=== PATIENT | male | born 1965 | race African-American/Black ===

== ENCOUNTER 2016-11-04 10:45 | Emergency (ER) | payer OTHER ==
[~2016-11-04] VITALS: Ht 185.4 cm; Wt 116.1 kg
[~2016-11-04 10:45] MED LIST: FLEXERIL10 MG PO; MOTRIN800 MG PO
--- NOTE | 2016-11-04 12:00 | ED CARDIAC/CP/PALPITATIONS ---
History of Present Illness General Chief Complaint: General Adult Stated Complaint: LOW BACK PAIN, CP Source: patient, old records Exam Limitations: no limitations Vital Signs & Intake/Output Vital Signs & Intake/Output Vital Signs Date Time Temp Pulse Resp B/P Pulse O2 O2 Flow FiO2 Ox Delivery Rate 11/04 1343 96.8 72 18 159/97 96 Room Air 11/04 1213 97 Room Air 11/04 1152 98.0 72 18 159/97 96 11/04 1103 97.2 76 20 148/87 97 Room Air Allergies Coded Allergies: NO KNOWN ALLERGIES (08/18/14) Reconcile Medications CYCLOBENZAPRINE HCL (Flexeril) 10 MG TAB 1 TAB PO TID PRN SPASM Avoid operating motor vehicle or heavy machinery Ibuprofen (Motrin) 800 MG TAB 1 TAB PO TID PRN PAIN Pantoprazole Sodium (Protonix) 40 MG TABLET.DR 1 TAB PO DAILY GERD Triage Note: PT C/O BURNING SENSATION IN CHEST SINCE THURSDAY. TOOK OTC MEDS FOR HEARTBURN WITH NO RELIEF. PT DENIES SOB. PT ALSO STATES LOW BACK PAIN Triage Nurses Notes Reviewed? yes Onset: Gradual Duration: day(s): (3), constant Timing: recent history Quality/Severity: moderate, burning Location: central Radiation: no radiation Activities at Onset: none Nitro Today/Relief: no nitro taken today Associated Symptoms: r lower back pain HPI: 50-year-old male with history of hypertension presents complaining of burning sensation to his chest that he's had intermittently however becoming more constant for the past 4 days. Patient was using [id number] Tums without improvement. He denies any radiation of pain into his abdomen or back, he is also however complaining of right lower back pain that came on after the symptoms began. He denies any abdominal pain nausea vomiting diarrhea no palpitations dizziness lightheadedness. Pain is not worse with inspiration no shortness of breath no fever no chills. He states the symptoms got worse after having a beer. There's been no recent trauma or injury no urinary bowel incontinence (TORI CHOWDHURY) Past History Travel History Traveled to [place] past 21 day No Medical History Any Pertinent Medical History? see below for history Cardiovascular: hypertension Surgical History Surgical History: none Psychosocial History What is your primary language Japanese Tobacco Use: Never used ETOH Use: occasional use Illicit Drug Use: denies illicit drug use Family History Hx Contributory? No (TORI CHOWDHURY) Review of Systems Review of Systems Constitutional: Reports: see HPI. All Other Systems: Reviewed and Negative Comments Review of systems: See HPI, All other systems negative. Constitutional, no chills no fever, no malaise HEENT: No visual changes no sore throat no congestion Cardiovascular: chest pain , no palpitation , no orthopnea no ankle swelling Skin, no jaundice no rashes, no change in skin Respiratory: No dyspnea no cough no sputum no hemoptysis GI: No nausea no vomiting, no diarrhea, no bloating/constipation : No dysuria No hematuria, no frequency, no discharge Muscle skeletal: No joint pain, no joint swelling, back pain, no neck pain, Neurologic: No numbness no confusion, no headache Psych: No stress Heme/endocrine: No bruising no bleeding Immunology: No lymphadenopathy (TORI CHOWDHURY) Physical Exam Physical Exam General Appearance: well developed/nourished, no apparent distress, alert Cardiovascular: regular rate/rhythm Comments: Well-developed well-nourished person in no acute distress HEENT: Normal EENT exam; PERRL, EOMI, HEAD is atraumatic. moist mucous membranes. Neck: Supple,normal range of motion Back: r sided paralumbar muscle tenderness, no CVA tenderness. Full range of motion Cardiovascular: Regular rate and rhythms no murmurs rubs Respiratory: . No respiratory distress. Patient speaking in full complete sentences. Breath sounds clear to auscultation bilaterally: NO W/R/R Abdomen: Soft, nontender nondistended, no appreciable organomegaly. Normal bowel sounds. No rebound/guarding, Extremity: No edema, full range of motion of extremities Neuro: Alert oriented x3, motor sensory normal, There were no obvious focal neurologic abnormalities. Skin: No appreciable rash on exposed skin, skin is warm and dry. Psych: Mood and affect is normal, memory and judgment is normal. Core Measures ACS in differential dx? Yes Severe Sepsis Present: No Septic Shock Present: No (TORI CHOWDHURY) Progress Differential Diagnosis: AMI, cholecystitis, musculoskeletal pain, myocarditis, pancreatitis, pericarditis, pneumonia, pneumothorax, PUD/GERD, viral syndrome Plan of Care: Orders Procedure Date/time Status TROPONIN LEVEL 11/04 1225 Complete COMPREHENSIVE METABOLIC PANEL 11/04 1225 Complete CBC WITHOUT DIFFERENTIAL 11/04 1225 Complete EKG 11/04 1046 Active Laboratory Tests 11/04/16 1235: Anion Gap 9, Estimated GFR > 60, BUN/Creatinine Ratio 13.6, Glucose 94, Calcium 9.8, Total Bilirubin 0.6, AST 24, ALT 38, Alkaline Phosphatase 80, Troponin I < 0.01, Total Protein 7.9, Albumin 4.3, Globulin 3.6, Albumin/Globulin Ratio 1.2, CBC w Diff MAN DIFF ORDERED, RBC 5.21, MCV 89.8, MCH 30.5, RDW 14.1, MPV 10.9 H , Gran % 38.0 L, Lymphocytes % 33.8, Monocytes % 22.9 H, Eosinophils % 4.6, Basophils % 0.7, Absolute Granulocytes 1.3 L, Absolute Lymphocytes 1.1 L, Absolute Monocytes 0.8 H, Absolute Eosinophils 0.2, Absolute Basophils 0, Platelet Estimate DECREASED, Normocytic RBCs VERIFIED, Normochromic RBCs VERIFIED, PUBS MCHC 34.0 labs ordered, xray ordered gi coctail x 1 Patient reports improvement in symptoms with GI cocktail, discussed with him at length all of his lab results x-ray findings need for close follow-up with his primary care physician, bland diet advised return anytime sooner if his symptoms worsen answered all the questions they feel comfortable plan (KIMBERLY GREGORY,TORI) Diagnostic Imaging: Viewed by Me: Radiology Read. Discussed w/RAD: Radiology Read. Radiology Impression: PATIENT: ELIZABETH ORTA PRESENT AGE: 50 PATIENT ACCOUNT NO: [id number] : 65 LOCATION: [facility] ORDERING PHYSICIAN: TORI GREGORY SERVICE DATE: 11/04/16 EXAM TYPE: RAD - XRY- CHEST XRAY, PA AND LATERAL EXAMINATION: XR CHEST CLINICAL INFORMATION: Pneumonia COMPARISON: None TECHNIQUE: 2 views of the chest were obtained. FINDINGS: The heart is normal in size. The lungs are well expanded and clear. Lower cervical fusion hardware is partially demonstrated. IMPRESSION: No acute pulmonary finding DICTATED BY: EMERITA CONCEPCION MD DATE/TIME DICTATED:11/04/161251 SHEET HEATER HELPER:SONIA DATE/TIME TRANSCRIBED:11/04/161251 CONFIDENTIAL, DO NOT COPY WITHOUT APPROPRIATE AUTHORIZATION. <Electronically signed in Other Vendor System> SIGNED BY: EMERITA CONCEPCION MD 04/04/17 1255 Initial ED EKG: NORMAL SINUS RHYTHM AT 60, NO ACUTE st SEGMENT CHANGES NORMAL AXIS Prior EKG: unchanged (07/2015) (TORI CHOWDHURY) Departure Departure Time of Disposition: 1325 Disposition: HOME OR SELF CARE Condition: Stable Clinical Impression Primary Impression: GERD (gastroesophageal reflux disease) Referrals: JANI REDDING APRN (PCP/Family) Additional Instructions: PROTONIX DIRECTED. BLAND DIET, CLEAR LIQUIDS, FOLLOW UP WITH YOUR PMD THIS WEEK. RETURN AT ANYTIME SOONER WITH ANY CONCERNS. THIS PRESCRIPTION WAS SENT TO [facility] Departure Forms: Customer Survey General Discharge Information Prescriptions: Current Visit Scripts Pantoprazole Sodium (Protonix) 1 TAB PO DAILY #14 TAB (TORI CHOWDHURY) PA/WOOD POLE TREATER Co-Sign Statement Statement: ED Attending supervision documentation- [] I saw and evaluated the patient. I have also reviewed all the pertinent lab results and diagnostic results. I agree with the findings and the plan of care as documented in the PA's/WOOD POLE TREATER's documentation. x I have reviewed the ED Record and agree with the PA's/WOOD POLE TREATER's documentation. [] Additions or exceptions (if any) to the PAs/WOOD POLE TREATER's note and plan are summarized below: [] (RAMON JAUREGUI,JASPAL) Critical Care Note Critical Care Note Critical Care Time: non-applicable (TORI CHOWDHURY)
[2016-11-04 12:47] LABS: ABSOLUTE BASOPHIL COUNT 0 /CUMM (0.0-0.2); ABSOLUTE EOSINOPHIL COUNT 0.2 /CUMM (0.0-0.7); ABSOLUTE GRANULOCYTE CT 1.3 /CUMM (1.4-6.5); ABSOLUTE MONOCYTE COUNT 0.8 /CUMM (0.10-0.60); BASOPHIL % 0.7 % (0.0-2.0); RBC DISTRIBUTION WIDTH 14.1 % (11.5-14.5)
--- NOTE | 2016-11-04 12:55 | RADIOLOGY REPORT ---
EXAMINATION: XR CHEST CLINICAL INFORMATION: Pneumonia COMPARISON: None TECHNIQUE: 2 views of the chest were obtained. FINDINGS: The heart is normal in size. The lungs are well expanded and clear. Lower cervical fusion hardware is partially demonstrated. IMPRESSION: No acute pulmonary finding
[2016-11-04 12:56] LABS: ABSOLUTE LYMPH COUNT 1.1 /CUMM (1.2-3.4); EOSINOPHIL % 4.6 % (0-5); HEMATOCRIT 46.7 % (42-52); MEAN CORPUSCULAR HGB 30.5 PG (27.0-31.0); MEAN CORPUSCULAR VOLUME 89.8 FL (80.0-94.0); MEAN PLATELET VOLUME 10.9 FL (7.4-10.4); PLATELET COUNT 118 /CUMM (130-400); RED BLOOD CELL CT 5.21 /CUMM (4.70-6.10); WHITE BLOOD CELL COUNT 3.3 /CUMM (4.8-10.8)
[2016-11-04] MEDS ORDERED: PROTONIX40 M3 PO (13:26)
[2016-11-04 13:43] VITALS: BP 159/97
== END 2016-11-04 14:02 ==
LOC: ERH 10:45
PROVIDERS: Physician Assistant Medical
DX: K21.9 Gastro-esophageal reflux disease without esophagitis (principal)
CPT/HCPCS: 93005; 93010